=== PATIENT | female | born 1940 | race Caucasian/White ===

== ENCOUNTER → 2017-06-03 | Outpatient (REF) | payer MEDICARE, OTHER | LOC: M LAB REF 13:39 | PROVIDERS: ATTEND Internal Medicine | DX: M06.9 Rheumatoid arthritis, unspecified (principal); R20.2 Paresthesia of skin ==

== ENCOUNTER → 2017-10-08 | Outpatient (REF) | payer MEDICARE, OTHER | LOC: M LAB REF 18:22 | DX: D48.5 Neoplasm of uncertain behavior of skin (principal) | CPT/HCPCS: 88305 ==

== ENCOUNTER → 2018-02-24 | Outpatient (CLI) | payer MEDICARE, OTHER | LOC: M RAD 11:26 | DX: M25.561 Pain in right knee (principal) | CPT/HCPCS: 76882 ==

== ENCOUNTER 2018-03-18 11:11 | Emergency (ER) | payer MEDICARE, OTHER ==
[2018-03-18] MEDS: KETOROLAC TROMETHAMINE 10 MG TAB PO (12:42)
== END 2018-03-18 14:16 | disposition home or self-care (01) ==
LOC: M ED 11:11
DX: M71.21 Synovial cyst of popliteal space [Baker], right knee (principal); M25.561 Pain in right knee; M79.89 Other specified soft tissue disorders; E78.5 Hyperlipidemia, unspecified; M06.9 Rheumatoid arthritis, unspecified; Z87.42 Personal history of other diseases of the female genital tract; Z88.5 Allergy status to narcotic agent; Z88.6 Allergy status to analgesic agent; Z79.899 Other long term (current) drug therapy
CPT/HCPCS: 93971

== ENCOUNTER → 2018-06-02 | Outpatient (REF) | payer MEDICARE, OTHER ==
[2018-06-02 13:40] LABS: C REACTIVE PROTEIN QUANTITATIV < 0.30 MG/DL (0.00-0.30)
== END ==
LOC: M LAB REF 12:25
DX: M06.9 Rheumatoid arthritis, unspecified (principal); D72.819 Decreased white blood cell count, unspecified
CPT/HCPCS: 86140

== ENCOUNTER → 2018-12-04 | Outpatient (REF) | payer MEDICARE, OTHER ==
[~2018-12-04] MED LIST: KETO10TAB PO; LEVOTAB10; PRAV20TA2; SULF500T2
== END ==
LOC: M LAB REF 11:17
PROVIDERS: ATTEND Internal Medicine
DX: M06.9 Rheumatoid arthritis, unspecified (principal)

== ENCOUNTER → 2019-06-07 | Outpatient (REF) | payer MEDICARE, OTHER | LOC: M LAB REF 12:42 | PROVIDERS: ATTEND Internal Medicine | DX: M06.9 Rheumatoid arthritis, unspecified (principal) ==

== ENCOUNTER 2019-11-07 14:55 | Emergency (ER) | payer MEDICARE, OTHER ==
[~2019-11-07] VITALS: Ht 157.5 cm; Wt 58.1 kg
[2019-11-07] MEDS ORDERED: NS 500 ML IV ONE (15:30)
[2019-11-07] MEDS ORDERED: MORPHINE 2 MG/ML 1ML VIAL (J2270) IV ONE (15:30)
[2019-11-07] MEDS ORDERED: ONDANSETRON 4MG/2ML VIAL IV ONE (15:30)
[2019-11-07 15:35] LABS: BASO % 0.2 % (0.0-1.0); HEMOGLOBIN 12.1 g/dl (12.0-15.5); LYMPH # 0.6 10^3/uL (1.5-5.0); LYMPH % 13.5 % (24.0-44.0); MEAN CORPUSCULAR HEMOGLOBIN 29.4 pg (27.0-33.0); MEAN CORPUSCULAR HGB CONC 31.8 g/dl (32.0-36.5); MEAN CORPUSCULAR VOLUME 92.5 fl (80.0-96.0); MONO # 0.5 10^3/uL (0.0-0.8); MONO % 10.9 % (0.0-5.0); NEUTROPHILS # 3.2 10^3/uL (1.5-8.5); NEUTROPHILS % 75.2 % (36.0-66.0); PLATELET COUNT, AUTOMATED 203 10^3/uL (150-450); RED BLOOD COUNT 4.11 10^6/uL (4.00-5.40); WHITE BLOOD COUNT 4.2 10^3/uL (4.0-10.0)
[2019-11-07] MEDS ORDERED: ISOVUE-370 76% 100ML VIAL As Ordered ONE (15:36)
[2019-11-07 15:47] LABS: INR 1.06; PROTHROMBIN TIME 13.5 SECONDS (11.8-14.0)
[2019-11-07 15:48] LABS: PARTIAL THROMBOPLASTIN TIME 34.5 SECONDS (25.0-38.4)
[2019-11-07 16:00] LABS: BILIRUBIN,DIRECT 0.2 MG/DL (0.0-0.2); BILIRUBIN,TOTAL 0.7 MG/DL (0.2-1.0)
[2019-11-07] MEDS ORDERED: NORC1TAB7 PO (16:42)
[2019-11-07] MEDS ORDERED: ZOFR4TAB16 PO (16:43)
[2019-11-07 16:45] VITALS: BP 157/72
[2019-11-07] MEDS ORDERED: NORCO 5/325MG TABLET (BULK FOR ED) PO ONE (16:45)
[2019-11-07] MEDS ORDERED: ONDANSETRON 4 MG TAB PO ONE (16:45)
--- NOTE | 2019-11-08 09:52 | REP ---
CT STUDY OF THE ABDOMEN AND PELVIS WITH IV BUT WITHOUT ORAL CONTRAST: REPEAT DICTATION. HISTORY: Trauma. Injury in a fall. Right flank and right upper quadrant pain. Preliminary report is provided at the time of exam by Dr. Menchaca. CT CONTRAST DOSE: 100 mL of intravenous Isovue 370 is administered. FINDINGS: Preliminary digital photo graphics librarian radiograph is unremarkable. The liver and the spleen are normal in size, homogeneous in texture. No hematoma is seen. There is no evidence of hemoperitoneum or pneumoperitoneum. Normal adrenal glands are seen. No abnormality is noted in the gallbladder. No pancreatic mass or cyst is seen. The main pancreatic duct is slightly prominent, but no mass or calculus is apparent. The kidneys enhance symmetrically and are morphologically intact. Normal caliber aorta. Small and large bowel loops are unremarkable in the abdomen and pelvis. Urinary bladder is intact. Appendix is surgically absent. Uterus is surgically absent. No abdominal wall defect is seen. No fracture is noted. There are fairly advanced degenerative disc disease changes at L4-5 and L2-3. IMPRESSION: No acute traumatic abnormality. Electronically Signed by Jonnie Mendez MD 11/08/2019 10:25 A
--- NOTE | 2019-11-08 09:53 | REP ---
CT CHEST WITH IV CONTRAST: REPEAT DICTATION. HISTORY: Injury in a fall. Preliminary report is provided at time of exam by Dr. Menchaca. CT CONTRAST DOSE: 100 mL of intravenous Isovue [address] FINDINGS: Preliminary digital camp advisor radiograph is unremarkable. There is no evidence of pneumothorax or hydrothorax. No pulmonary contusion, mass, significant nodule, or infiltrate is seen. There is no evidence of mediastinal mass or adenopathy. There is a small low-density nodule in the left lobe of the thyroid. On sagittal multiplanar reformation images, there is mild anterior wedging which appears chronic at T8 and T10. No paravertebral soft-tissue swelling is seen at either of these levels. No acute fracture is noted. No rib fracture is seen. IMPRESSION: No acute traumatic abnormality. Old mild wedge deformities at T8 and T10. Electronically Signed by Jonnie Mendez MD 11/08/2019 10:26 A
--- NOTE | 2019-11-08 09:57 | REP ---
PORTABLE CHEST X-RAY: SINGLE VIEW. REPEAT DICTATION. HISTORY: Trauma. Preliminary report is provided at the time of the exam by Dr. Menchaca. FINDINGS: Monitoring electrodes as are seen overlying the chest. Heart is not enlarged. Lungs are clear. The pleural angles are sharp. Pulmonary vasculature is not increased. IMPRESSION: No active disease. Electronically Signed by Jonnie Mendez MD 11/08/2019 10:26 A
--- NOTE | 2019-11-08 09:57 | REP ---
CT BRAIN WITHOUT CONTRAST: REPEAT DICTATION. HISTORY: Trauma. Preliminary report is provided at the time of exam by Dr. Menchaca. FINDINGS: Digital preliminary maintenance electrician radiograph is unremarkable. Bone window settings demonstrate an intact bony calvarium. There is some mild vascular calcification in the distal internal carotid arteries. The visualized paranasal sinuses are clear. No skull fractures seen. No scalp hematoma is appreciated. On soft-tissue window settings, there is minimal atrophy. There is no evidence of infarct, hemorrhage, contusion, mass, extra-axial fluid collection, or midline shift. IMPRESSION: Minimal vascular calcification and volume loss. No acute intracranial abnormality. Electronically Signed by Jonnie Mendez MD 11/08/2019 10:26 A
== END 2019-11-07 17:12 | disposition home or self-care (01) ==
LOC: M ED 14:55
DX: S30.1XXA Contusion of abdominal wall, initial encounter (principal); S20.211A Contusion of right front wall of thorax, initial encounter; W06.XXXA Fall from bed, initial encounter; Y92.092 Bedroom in other non-institutional residence as the place of occurrence of the external cause; M06.9 Rheumatoid arthritis, unspecified; E78.00 Pure hypercholesterolemia, unspecified; Z79.899 Other long term (current) drug therapy; Z88.5 Allergy status to narcotic agent; Z88.6 Allergy status to analgesic agent; J30.1 Allergic rhinitis due to pollen; Z87.81 Personal history of (healed) traumatic fracture
CPT/HCPCS: 36415; 70450; 71045; 71260; 74177; 80047; 80076; 85025; 85610; 85730; 93041; 94760; 96361; 96374; 96375; 99284; J2270; J2405; Q9967

== ENCOUNTER → 2019-12-08 | Outpatient (REF) | payer MEDICARE, OTHER ==
[~2019-12-08] MED LIST changes: +NORC1TAB7 PO; +ZOFR4TAB16 PO
== END ==
LOC: M LAB REF 11:53
PROVIDERS: ATTEND Internal Medicine
DX: M06.9 Rheumatoid arthritis, unspecified (principal)

== ENCOUNTER → 2020-05-22 | Outpatient (REF) | payer MEDICARE, OTHER | LOC: M LAB REF 11:46 | PROVIDERS: ATTEND Internal Medicine | DX: M06.9 Rheumatoid arthritis, unspecified (principal) ==

== ENCOUNTER → 2020-11-21 | Outpatient (REF) | payer MEDICARE, OTHER | LOC: M LAB REF 17:07 | PROVIDERS: ATTEND Internal Medicine | DX: M06.9 Rheumatoid arthritis, unspecified (principal) ==

== ENCOUNTER → 2021-05-23 | Outpatient (REF) | payer MEDICARE, OTHER | LOC: M LAB REF 11:35 | PROVIDERS: ATTEND Internal Medicine | DX: M06.9 Rheumatoid arthritis, unspecified (principal) ==

== ENCOUNTER → 2021-05-29 | Outpatient (REF) | payer MEDICARE, OTHER ==
[2021-05-29 12:09] LABS: BACTERIA, URINE AUTO NEGATIVE (NEGATIVE); RBC, URINE AUTO 0 /HPF (0-3); SQUAMOUS EPITHELIAL CELL UR AU 0 /HPF (0-6); WBC, URINE AUTO 1 /HPF (0-3)
== END ==
LOC: M LAB REF 11:52
PROVIDERS: ATTEND Internal Medicine
DX: R31.9 Hematuria, unspecified (principal)

== ENCOUNTER → 2021-06-26 | Outpatient (REF) | payer MEDICARE, OTHER ==
[2021-06-26 17:46] LABS: C REACTIVE PROTEIN QUANTITATIV < 0.30 MG/DL (0.00-0.30)
[2021-06-26 18:01] LABS: VITAMIN B12 LEVEL > 2000 PG/ML (247-911)
== END ==
LOC: M LAB REF 16:29
PROVIDERS: ATTEND Internal Medicine
DX: R51.9 Headache, unspecified (principal); R20.2 Paresthesia of skin

== ENCOUNTER → 2021-11-27 | Outpatient (REF) | payer MEDICARE, OTHER | LOC: M LAB REF 11:26 | PROVIDERS: ATTEND Internal Medicine | DX: R51.9 Headache, unspecified (principal); M06.9 Rheumatoid arthritis, unspecified; M19.90 Unspecified osteoarthritis, unspecified site ==

== ENCOUNTER → 2022-04-01 | Outpatient (REF) | payer MEDICARE, OTHER ==
[~2022-04-01] MED LIST changes: +HYDR200T3; +LEFL1TAB4; +ONDA-83; +PROM1SUP2 PR
== END ==
LOC: M LAB REF 15:35
PROVIDERS: ATTEND Registered Nurse
DX: R19.7 Diarrhea, unspecified (principal)

== ENCOUNTER 2022-04-03 09:22 | Emergency (ER) | payer MEDICARE, OTHER ==
[~2022-04-03] VITALS: Ht 162.6 cm; Wt 52.6 kg
[~2022-04-03 09:22] MED LIST changes: -HYDR200T3; -LEFL1TAB4; -ONDA-83; -PROM1SUP2 PR
[2022-04-03] MEDS ORDERED: ONDA-83 (09:30)
[2022-04-03] MEDS ORDERED: HYDR200T3 (09:30)
[2022-04-03] MEDS ORDERED: LEFL1TAB4 (09:30)
[2022-04-03] MEDS ORDERED: NS 1,000 ML IV ONE (11:25)
[2022-04-03 12:33] LABS: BASO % 0.5 % (0.0-1.0); EOS # 0.1 10^3/uL (0.0-0.5); EOS % 1.6 % (0.0-3.0); HEMATOCRIT 48.7 % (36.0-47.0); LYMPH # 0.6 10^3/uL (1.5-5.0); LYMPH % 10.8 % (24.0-44.0); MEAN CORPUSCULAR HEMOGLOBIN 28.6 pg (27.0-33.0); MEAN CORPUSCULAR HGB CONC 32.9 g/dl (32.0-36.5); MEAN CORPUSCULAR VOLUME 87.1 fl (80.0-96.0); MONO # 0.8 10^3/uL (0.0-0.8); MONO % 14.3 % (2.0-8.0); NEUTROPHILS # 4.2 10^3/uL (1.5-8.5); NEUTROPHILS % 72.5 % (36.0-66.0); PLATELET COUNT, AUTOMATED 268 10^3/uL (150-450); RED BLOOD COUNT 5.59 10^6/uL (4.00-5.40); WHITE BLOOD COUNT 5.8 10^3/uL (4.0-10.0)
[2022-04-03] MEDS ORDERED: KCL 10MEQ/100ML SWI (KRUN) 10 MEQ in IV 1 EA IV ONE (12:35)
[2022-04-03] MEDS ORDERED: POTASSIUM CHLORIDE 10MEQ SR TABLET PO ONE (12:35)
[2022-04-03] MEDS ORDERED: ISOVUE-370 76% 100ML VIAL As Ordered ONE (12:48)
[2022-04-03 13:16] LABS: ALBUMIN 4.1 GM/DL (3.2-5.2); BILIRUBIN,DIRECT 0.2 MG/DL (0.0-0.2); BILIRUBIN,TOTAL 0.9 MG/DL (0.2-1.0); TOTAL PROTEIN 7.3 GM/DL (6.4-8.2)
[2022-04-03] MEDS ORDERED: NS 500 ML IV ONE (13:45)
[2022-04-03 16:13] LABS: CPK CREATINE PHOSPHOKINASE 50 U/L (26-192)
[2022-04-03] MEDS ORDERED: PROM1SUP2 PR (19:09)
[2022-04-03 19:11] VITALS: BP 122/78
== END 2022-04-03 19:12 | disposition home or self-care (01) ==
LOC: M ED 09:22
DX: S29.011A Strain of muscle and tendon of front wall of thorax, initial encounter (principal); K52.9 Noninfective gastroenteritis and colitis, unspecified; E87.6 Hypokalemia; K64.9 Unspecified hemorrhoids; E86.0 Dehydration; E78.5 Hyperlipidemia, unspecified; I49.1 Atrial premature depolarization; M06.9 Rheumatoid arthritis, unspecified; F10.10 Alcohol abuse, uncomplicated; Z88.5 Allergy status to narcotic agent; Z79.811 Long term (current) use of aromatase inhibitors; Z79.899 Other long term (current) drug therapy
CPT/HCPCS: 71046; 74177; 80047; 80076; 82550; 83605; 83690; 84132; 84484; 85025; 87486; 87581; 87633; 87798; 93005; 93041; 96365; 99285; Q9967

== ENCOUNTER 2022-04-07 13:38 | Observation (INO) | payer MEDICARE, OTHER ==
[~2022-04-07] VITALS: Ht 162.6 cm; Wt 52.4 kg
[~2022-04-07 13:38] MED LIST changes: +HYDR200T3 PO; +LEFL1TAB4 PO; +ONDA-83 PO; -PRAV20TA2; +PRAV20TA2 PO; +PROM1SUP2 PR
[2022-04-07] MEDS ORDERED: ONDANSETRON 4MG ORAL DISINTEGRATING TAB PO ONE (14:15)
[2022-04-07] MEDS ORDERED: NS 1,000 ML IV ONE (14:15)
[2022-04-07 15:07] LABS: BASO % 0.2 % (0.0-1.0); EOS % 0.5 % (0.0-3.0); HEMATOCRIT 47.1 % (36.0-47.0); HEMOGLOBIN 15.2 g/dl (12.0-15.5); LYMPH # 0.5 10^3/uL (1.5-5.0); LYMPH % 6.5 % (24.0-44.0); MEAN CORPUSCULAR HEMOGLOBIN 28.4 pg (27.0-33.0); MEAN CORPUSCULAR HGB CONC 32.3 g/dl (32.0-36.5); MONO # 0.9 10^3/uL (0.0-0.8); MONO % 10.7 % (2.0-8.0); NEUTROPHILS # 6.6 10^3/uL (1.5-8.5); NEUTROPHILS % 81.9 % (36.0-66.0); PLATELET COUNT, AUTOMATED 257 10^3/uL (150-450); RED BLOOD COUNT 5.35 10^6/uL (4.00-5.40)
[2022-04-07 15:48] LABS: ALBUMIN 3.9 GM/DL (3.2-5.2); BILIRUBIN,DIRECT 0.2 MG/DL (0.0-0.2); CALCIUM LEVEL 10.1 MG/DL (8.8-10.2); CREATININE FOR GFR 1.01 MG/DL (0.55-1.30); FREE T4 1.3 NG/DL (0.76-1.46); GLOMERULAR FILTRATION RATE 56.1 (>32); POTASSIUM SERUM 3.8 MEQ/L (3.5-5.1); THYROID STIMULATING HORMONE 0.702 uIU/ML (0.358-3.740); TOTAL PROTEIN 7.2 GM/DL (6.4-8.2)
[2022-04-07] MEDS ORDERED: ACETAMINOPHEN TAB 650MG DOSE (2X325MG) PO PRN (16:55)
[2022-04-07] MEDS: NS 1,000 ML IV SCH (18:00)
[2022-04-07] MEDS ORDERED: PROM12.54 PR (18:20)
[2022-04-07] MEDS ORDERED: GOLYTELY SOLN 4000 ML BTL PO ONE (19:00)
[2022-04-07] MEDS ORDERED: ASPI81CH33 PO (19:37)
[2022-04-07] MEDS ORDERED: VITA400C83 PO (19:37)
[2022-04-07] MEDS ORDERED: ALEV220T22 PO (19:37)
[2022-04-07] MEDS ORDERED: CHOL125C6 PO (19:37)
[2022-04-07] MEDS ORDERED: MED REC COMMENT (19:39)
[2022-04-07] MEDS ORDERED: HOME MED LIST COMPLETE! XX SCH (19:40)
[2022-04-07 21:00] VITALS: BP 142/74
[2022-04-07] MEDS ORDERED: PRAVASTATIN 20 MG TAB PO SCH (21:00)
[2022-04-07] MEDS ORDERED: RAMELTEON 8 MG TAB (ROZEREM) PO PRN (21:20)
[2022-04-07] MEDS: ONDANSETRON 4MG 2ML VIAL IV PRN (21:54)
[2022-04-07] MEDS ORDERED: METOCLOPRAMIDE INJ 10MG/2ML VIAL (J2765 PER 1) IV PRN (22:45)
[2022-04-08] MEDS: NS 1,000 ML IV SCH (06:00)
[2022-04-08] MEDS: ONDANSETRON 4MG 2ML VIAL IV PRN (06:01)
[2022-04-08 06:04] LABS: HEMATOCRIT 40.5 % (36.0-47.0); HEMOGLOBIN 13.4 g/dl (12.0-15.5); MEAN CORPUSCULAR HEMOGLOBIN 28.8 pg (27.0-33.0); MEAN CORPUSCULAR HGB CONC 33.1 g/dl (32.0-36.5); MEAN CORPUSCULAR VOLUME 87.1 fl (80.0-96.0); PLATELET COUNT, AUTOMATED 204 10^3/uL (150-450); RED BLOOD COUNT 4.65 10^6/uL (4.00-5.40); WHITE BLOOD COUNT 6.1 10^3/uL (4.0-10.0)
[2022-04-08 06:38] LABS: ALBUMIN 3.2 GM/DL (3.2-5.2); ALT/SGPT 16 U/L (12-78); BILIRUBIN,TOTAL 0.7 MG/DL (0.2-1.0); BLOOD UREA NITROGEN 16 MG/DL (7-18); CALCIUM LEVEL 8.8 MG/DL (8.8-10.2); CARBON DIOXIDE LEVEL 25 MEQ/L (21-32); CHLORIDE LEVEL 107 MEQ/L (98-107); CREATININE FOR GFR 0.87 MG/DL (0.55-1.30); GLOMERULAR FILTRATION RATE > 60.0 (>32); GLUCOSE, FASTING 89 MG/DL (70-100); SODIUM LEVEL 139 MEQ/L (136-145); TOTAL PROTEIN 6.2 GM/DL (6.4-8.2)
[2022-04-08] MEDS ORDERED: KCL 10MEQ/100ML SWI (KRUN) 10 MEQ in IV 1 EA IV SCH (08:00)
[2022-04-08] MEDS ORDERED: POTASSIUM CHLORIDE 10MEQ SR TABLET PO ONE (09:00)
[2022-04-08] MEDS ORDERED: LIDOCAINE 2% 100MG/5ML SDV (FOR ANES.) As Ordered ONE (12:41)
[2022-04-08] MEDS ORDERED: propofoL 200 MG/20 ML VIAL As Ordered ONE (12:41)
[2022-04-08] MEDS ORDERED: fentaNYL 100 MCG/2 ML INJECTION As Ordered ONE (12:43)
[2022-04-08] MEDS ORDERED: SIMETHICONE 40MG/0.6ML DROPS 30ML As Ordered ONE (12:44)
[2022-04-08] MEDS ORDERED: PHENYLephrine 500MCG 5ML (100MCG/ML) SYRINGE As Ordered ONE (12:56)
[2022-04-08 14:00] VITALS: BP 136/72
[2022-04-08 14:06] VITALS: BP 137/72
[2022-04-08] MEDS ORDERED: PANT40TA29 PO (14:28)
[2022-04-08] MEDS ORDERED: SUCR1TAB56 PO (14:28)
== END 2022-04-08 15:22 | disposition home or self-care (01) ==
LOC: M ED 13:38 → M ED INP 16:54 → M MSPAV 21:00
PROVIDERS: ADMIT Family Medicine; ATTEND Family Medicine
DX: R11.2 Nausea with vomiting, unspecified (principal); R19.7 Diarrhea, unspecified; K29.70 Gastritis, unspecified, without bleeding; R11.15 Cyclical vomiting syndrome unrelated to migraine; K64.8 Other hemorrhoids; K52.9 Noninfective gastroenteritis and colitis, unspecified; Q43.8 Other specified congenital malformations of intestine; M06.9 Rheumatoid arthritis, unspecified; Z79.82 Long term (current) use of aspirin; Z79.899 Other long term (current) drug therapy; Z88.5 Allergy status to narcotic agent; J30.2 Other seasonal allergic rhinitis; Z85.41 Personal history of malignant neoplasm of cervix uteri
CPT/HCPCS: 36415; 43239; 45380; 76705; 80048; 80053; 80076; 81000; 81015; 82150; 83605; 83690; 83735; 84439; 84443; 85025; 85027; 87040; 87086; 87486; 87507; 87581; 87633; 87798; 88305; 88342; 93005; 93041; 96374; 96375; 96376; 99285; G0378; J2370; J2405; J3010

== ENCOUNTER → 2022-04-11 | Outpatient (REF) | payer MEDICARE, OTHER ==
[~2022-04-11] MED LIST changes: +ALEV220T22 PO; +ASPI81CH33 PO; +CHOL125C6 PO; +MED REC COMMENT; +PANT40TA29 PO; +PROM12.54 PR; +SUCR1TAB56 PO; +VITA400C83 PO
== END ==
LOC: M LAB REF 16:10
PROVIDERS: ATTEND Internal Medicine
DX: R19.7 Diarrhea, unspecified (principal); R10.9 Unspecified abdominal pain

== ENCOUNTER → 2022-05-31 | Outpatient (REF) | payer MEDICARE, OTHER | LOC: M LAB REF 12:13 | PROVIDERS: ATTEND Internal Medicine | DX: M06.9 Rheumatoid arthritis, unspecified (principal); R51.9 Headache, unspecified ==

== ENCOUNTER → 2022-12-13 | Outpatient (REF) | payer MEDICARE, OTHER ==
[~2022-12-13] MED LIST changes: -HYDR200T3 PO; +HYDR200T46 PO
[2022-12-13 12:50] LABS: C REACTIVE PROTEIN QUANTITATIV < 0.40 MG/DL (<1.0)
[2022-12-16 06:58] LABS: IRON (FE) 66 UG/DL (50-170); PERCENT SATURATION 21.9 % (13.2-45.0); TOTAL IRON BINDING CAPACITY 301 UG/DL (250-425)
[2022-12-16 07:01] LABS: FERRITIN 60.5 NG/ML (7.3-270.7)
== END ==
LOC: M LAB REF 12:06
PROVIDERS: ATTEND Internal Medicine
DX: M06.9 Rheumatoid arthritis, unspecified (principal); D64.9 Anemia, unspecified

== ENCOUNTER → 2023-03-14 | Outpatient (REF) | payer MEDICARE, OTHER ==
[2023-03-14 13:12] LABS: C REACTIVE PROTEIN QUANTITATIV < 0.40 MG/DL (<1.0)
[2023-03-14 13:15] LABS: FERRITIN 75.1 NG/ML (7.3-270.7)
== END ==
LOC: M LAB REF 12:03
PROVIDERS: ATTEND Internal Medicine
DX: D50.9 Iron deficiency anemia, unspecified (principal); M06.9 Rheumatoid arthritis, unspecified

== ENCOUNTER → 2023-06-06 | Outpatient (REF) | payer MEDICARE, OTHER | LOC: M LAB REF 12:20 | PROVIDERS: ATTEND Internal Medicine | DX: D50.9 Iron deficiency anemia, unspecified (principal); M06.9 Rheumatoid arthritis, unspecified ==

== ENCOUNTER → 2023-12-08 | Outpatient (REF) | payer MEDICARE, OTHER ==
[~2023-12-08] MED LIST changes: -LEFL1TAB4 PO; +LEFL20TA15 PO
[2023-12-08 13:47] LABS: C REACTIVE PROTEIN QUANTITATIV < 0.40 MG/DL (<1.0)
[2023-12-08 13:53] LABS: FERRITIN 72.8 NG/ML (7.3-270.7)
== END ==
LOC: M LAB REF 12:17
PROVIDERS: ATTEND Internal Medicine
DX: D50.9 Iron deficiency anemia, unspecified (principal); M06.9 Rheumatoid arthritis, unspecified

== ENCOUNTER → 2024-06-08 | Outpatient (REF) | payer MEDICARE, OTHER ==
[~2024-06-08] MED LIST changes: +E-401CAP2 PO; -VITA400C83 PO
== END ==
LOC: M LAB REF 13:10
PROVIDERS: ATTEND Internal Medicine
DX: M06.9 Rheumatoid arthritis, unspecified (principal)

== ENCOUNTER 2024-09-18 12:07 | Emergency (ER) | payer MEDICARE, OTHER ==
[~2024-09-18] VITALS: Ht 160 cm; Wt 53.2 kg
[2024-09-18] MEDS ORDERED: SULF500T2 PO (12:26)
[2024-09-18 13:44] LABS: BASO % 0.6 % (0.0-1.0); EOS # 0.1 10^3/uL (0.0-0.5); HEMATOCRIT 40.7 % (36.0-47.0); HEMOGLOBIN 13.6 g/dl (12.0-15.5); LYMPH # 0.8 10^3/uL (1.5-5.0); LYMPH % 16.7 % (24.0-44.0); MEAN CORPUSCULAR HEMOGLOBIN 30.1 pg (27.0-33.0); MEAN CORPUSCULAR HGB CONC 33.4 g/dl (32.0-36.5); MONO # 0.7 10^3/uL (0.0-0.8); MONO % 13.2 % (2.0-8.0); NEUTROPHILS # 3.4 10^3/uL (1.5-8.5); NEUTROPHILS % 68.3 % (36.0-66.0); PLATELET COUNT, AUTOMATED 280 10^3/uL (150-450); RED BLOOD COUNT 4.52 10^6/uL (4.00-5.40); WHITE BLOOD COUNT 4.9 10^3/uL (4.0-10.0)
[2024-09-18 14:17] LABS: ALBUMIN 3.7 G/DL (3.2-5.2); ALKALINE PHOSPHATASE 63 U/L (35-104); ALT/SGPT 16 U/L (7.0-40); AST/SGOT 19 U/L (<34); BILIRUBIN,TOTAL 0.8 MG/DL (0.3-1.2); BLOOD UREA NITROGEN 9 MG/DL (9-23); CALCIUM LEVEL 9.8 MG/DL (8.3-10.6); CARBON DIOXIDE LEVEL 23 MMOL/L (20-31); CHLORIDE LEVEL 109 MMOL/L (98-107); CREATININE FOR GFR 0.61 MG/DL (0.55-1.30); GLOMERULAR FILTRATION RATE > 60.0 (>32); GLUCOSE, FASTING 90 MG/DL (74-106); POTASSIUM SERUM 3.9 MMOL/L (3.5-5.1); SODIUM LEVEL 141 MMOL/L (136-145); TOTAL PROTEIN 6.5 G/DL (5.7-8.2)
[2024-09-18] MEDS: ACETAMINOPHEN 500 MG TAB PO ONE (16:15)
[2024-09-18] MEDS: ONDANSETRON 4MG 2ML VIAL IV ONE (16:15)
[2024-09-18] MEDS ORDERED: ONDA-282 PO (16:16)
[2024-09-18] MEDS ORDERED: MUCI600T31 PO (16:16)
[2024-09-18 16:34] VITALS: BP 136/79; TEMP 97.5; O2SAT 99
== END 2024-09-18 16:56 | disposition home or self-care (01) ==
LOC: M ED 12:07 → EDBD 12:07 → M ED 16:56
DX: H81.13 Benign paroxysmal vertigo, bilateral (principal); H65.03 Acute serous otitis media, bilateral; Z88.5 Allergy status to narcotic agent; Z91.048 Other nonmedicinal substance allergy status; Z79.82 Long term (current) use of aspirin; Z79.83 Long term (current) use of bisphosphonates; Z79.899 Other long term (current) drug therapy
CPT/HCPCS: 80053; 85025; 87486; 87581; 87633; 87798; 93005; 96374; 99284; J2405

== ENCOUNTER 2024-09-21 13:42 | Observation (INO) | payer MEDICARE, OTHER ==
[~2024-09-21 13:42] MED LIST changes: +MUCI600T31 PO; +ONDA-282 PO; +SULF500T2 PO
[2024-09-21] MEDS ORDERED: ISOVUE-370 76% 100ML VIAL As Ordered ONE (14:39)
[2024-09-21 14:56] LABS: BASO % 0.6 % (0.0-1.0); EOS # 0.1 10^3/uL (0.0-0.5); EOS % 1.8 % (0.0-3.0); HEMATOCRIT 40.5 % (36.0-47.0); HEMOGLOBIN 13.3 g/dl (12.0-15.5); LYMPH # 0.9 10^3/uL (1.5-5.0); LYMPH % 17.1 % (24.0-44.0); MEAN CORPUSCULAR HEMOGLOBIN 30.6 pg (27.0-33.0); MEAN CORPUSCULAR HGB CONC 32.8 g/dl (32.0-36.5); MEAN CORPUSCULAR VOLUME 93.1 fl (80.0-96.0); MONO # 0.7 10^3/uL (0.0-0.8); MONO % 13.9 % (2.0-8.0); NEUTROPHILS # 3.3 10^3/uL (1.5-8.5); NEUTROPHILS % 66.2 % (36.0-66.0); PLATELET COUNT, AUTOMATED 282 10^3/uL (150-450); RED BLOOD COUNT 4.35 10^6/uL (4.00-5.40)
[2024-09-21 15:29] LABS: BLOOD UREA NITROGEN 14 MG/DL (9-23); CALCIUM LEVEL 9.7 MG/DL (8.3-10.6); CARBON DIOXIDE LEVEL 28 MMOL/L (20-31); CHLORIDE LEVEL 106 MMOL/L (98-107); CREATININE FOR GFR 0.71 MG/DL (0.55-1.30); GLOMERULAR FILTRATION RATE > 60.0 (>32); GLUCOSE, FASTING 96 MG/DL (74-106); POTASSIUM SERUM 3.9 MMOL/L (3.5-5.1); SODIUM LEVEL 142 MMOL/L (136-145)
[2024-09-21] MEDS: MECLIZINE 25 MG TABLET PO ONE (16:11)
[2024-09-21] MEDS ORDERED: MOM 30ML SUSPENSION UDC PO PRN (21:40)
[2024-09-21] MEDS ORDERED: ACETAMINOPHEN 325 MG TAB PO PRN (21:40)
[2024-09-21] MEDS ORDERED: MUCI600T31 PO (21:49)
[2024-09-21] MEDS ORDERED: ONDA-282 PO (21:49)
[2024-09-21] MEDS ORDERED: CALC500T38 PO (21:49)
[2024-09-21] MEDS ORDERED: RA B1TAB2 PO (21:49)
[2024-09-21] MEDS ORDERED: LEVOTAB10 PO (21:49)
[2024-09-21] MEDS ORDERED: MAG-400T7 PO (21:49)
[2024-09-21] MEDS ORDERED: HOME MED LIST COMPLETE! XX SCH (21:50)
[2024-09-21] MEDS: PANTOPRAZOLE 40MG VIAL IV SCH (22:44)
[2024-09-21] MEDS: MECLIZINE 25 MG TABLET PO SCH (22:45)
[2024-09-21] MEDS: PRAVASTATIN 20 MG TAB PO SCH (23:25)
[2024-09-21 23:28] VITALS: BP 170/85; TEMP 97.2
[2024-09-22] MEDS ORDERED: hydrALAZINE 20MG/ML 1ML VIAL IV STA (00:09)
[2024-09-22 01:10] VITALS: BP 170/85
[2024-09-22] MEDS: **hydrALAZINE** 10 MG TAB PO ONE (01:10)
[2024-09-22] MEDS: RAMELTEON 8 MG TAB (ROZEREM) PO ONE (01:10)
[2024-09-22 03:23] VITALS: BP 122/58
[2024-09-22 05:08] VITALS: BP 145/69; TEMP 97.2; O2SAT 95
[2024-09-22 06:54] LABS: HEMATOCRIT 42.2 % (36.0-47.0); MEAN CORPUSCULAR HEMOGLOBIN 30.6 pg (27.0-33.0); MEAN CORPUSCULAR HGB CONC 33.2 g/dl (32.0-36.5); MEAN CORPUSCULAR VOLUME 92.1 fl (80.0-96.0); PLATELET COUNT, AUTOMATED 250 10^3/uL (150-450); RED BLOOD COUNT 4.58 10^6/uL (4.00-5.40); WHITE BLOOD COUNT 4.4 10^3/uL (4.0-10.0)
[2024-09-22 07:21] LABS: BLOOD UREA NITROGEN 12 MG/DL (9-23); CALCIUM LEVEL 9.9 MG/DL (8.3-10.6); CARBON DIOXIDE LEVEL 29 MMOL/L (20-31); CHLORIDE LEVEL 107 MMOL/L (98-107); GLOMERULAR FILTRATION RATE > 60.0 (>32); GLUCOSE, FASTING 90 MG/DL (74-106); MAGNESIUM LEVEL 1.9 MG/DL (1.8-2.4); SODIUM LEVEL 142 MMOL/L (136-145)
[2024-09-22 07:49] LABS: KETONE, URINE AUTO RFX NEGATIVE (NEGATIVE); LEUKOCYTE ESTERASE UR AUTO RFX NEGATIVE (NEGATIVE); NITRITE, URINE AUTO RFX NEGATIVE (NEGATIVE); RBC, URINE AUTO RFX 1 /HPF (0-3); SQUAM EPITHELIAL CELL UR AURFX 0 /HPF (0-6); WBC, URINE AUTO RFX 2 /HPF (0-3)
[2024-09-22] MEDS: MAGNESIUM OXIDE 400MG TAB (MAG-OX) PO SCH (08:51)
[2024-09-22] MEDS: ASCORBIC ACID 500 MG TAB PO SCH (08:51)
[2024-09-22] MEDS: VITAMIN E 400 INTERNATIONAL UNITS CAP PO SCH (08:51)
[2024-09-22] MEDS: ENOXAPARIN 40MG/0.4ML SYRINGE (J1650 PER 10MG) SC SCH (08:51)
[2024-09-22] MEDS: HYDROXYCHLOROQUINE 200 MG TAB PO SCH (08:51)
[2024-09-22] MEDS: sulfaSALAzine 500 MG TABEC PO SCH (08:52)
[2024-09-22] MEDS: VITAMIN D 1,000 INTERNATIONAL UNITS TABLET PO SCH (08:52)
[2024-09-22] MEDS: VITAMIN B COMPLEX/VIT C CAP PO SCH (08:52)
[2024-09-22] MEDS: ASPIRIN 81MG CHEW TABLET PO SCH (08:52)
[2024-09-22] MEDS: DOCUSATE SODIUM 100MG CAPSULE PO SCH (08:53)
[2024-09-22 10:30] VITALS: BP_SYST 112; BP_SYST 122; BP_SYST 124; BP_DIAS 62; BP_DIAS 63; BP_DIAS 70
[2024-09-22] MEDS ORDERED: MECL-86 PO (10:50)
[2024-09-22 11:13] LABS: ERYTHROCYTE SEDIMENTATION RATE 6 mm/hr (0-30)
== END 2024-09-22 12:00 | disposition home or self-care (01) ==
LOC: EDBD 13:42 → M ED 13:42 → M ED INP 13:43 → M MS5PR 23:15
PROVIDERS: ADMIT Student in an Organized Health Care Education/Training Program; ATTEND Internal Medicine
DX: H81.10 Benign paroxysmal vertigo, unspecified ear (principal); M06.9 Rheumatoid arthritis, unspecified; E78.5 Hyperlipidemia, unspecified; E56.9 Vitamin deficiency, unspecified; Z79.82 Long term (current) use of aspirin; Z79.899 Other long term (current) drug therapy
CPT/HCPCS: 36415; 70450; 70496; 70498; 70551; 71045; 80047; 80048; 81001; 83735; 85025; 85027; 85652; 93005; 93041; 94760; 96372; 96374; 97161; 97530; 99285; G0378; J1650; J2470; Q9967

== ENCOUNTER → 2024-12-28 | Outpatient (CLI) | payer MEDICARE, OTHER ==
[~2024-12-28] MED LIST changes: +CALC500T38 PO; +LEVOTAB10 PO; +MAG-400T7 PO; +MECL-86 PO; -PRAV20TA2 PO; +PRAV20TA78 PO; +RA B1TAB2 PO
== END ==
LOC: M RAD 11:12
PROVIDERS: ATTEND Internal Medicine
DX: E04.1 Nontoxic single thyroid nodule (principal)

== ENCOUNTER → 2025-02-02 | Outpatient (CLI) | payer MEDICARE, OTHER ==
[2025-02-02 14:25] VITALS: TEMP 97.4
[2025-02-02 14:50] VITALS: BP 168/74; O2SAT 96
[2025-02-02] MEDS: LIDOCAINE 1% MDV 20 ML VIAL SC ONE (15:07)
== END ==
LOC: M IRPRO 14:20
PROVIDERS: ATTEND Internal Medicine
DX: E04.1 Nontoxic single thyroid nodule (principal)